=== PATIENT | female | born 1990 | race Caucasian/White ===

== ENCOUNTER 2022-05-01 14:11 | Outpatient (CLI) | payer OTHER, SELFPAY ==
[2022-05-01 14:47] VITALS: BP 103/60; PULSE 88
--- NOTE | 2022-05-01 15:19 | PC.NURSE ---
Sonam Hraley called Dr. Crouch at [phone]. Rom Plus Negative. NST reactive. Orders to send home.
== END 2022-05-01 15:00 | disposition home or self-care (01) ==
LOC: ANHOBOP 15:14
PROVIDERS: Visit Provider Obstetrics & Gynecology
DX: O42.90 Premature rupture of membranes, unspecified as to length of time between rupture and onset of labor, unspecified weeks of gestation (principal); Z3A.00 Weeks of gestation of pregnancy not specified
CPT/HCPCS: 59025; 84112

== ENCOUNTER 2022-06-10 21:28 | Inpatient (IN) | payer OTHER, SELFPAY ==
--- NOTE | 2022-06-10 21:28 | LDADM ---
This patient, Georgette Mcgill, was admitted to Labor/Delivery/Recovery 106 on 06/10/22 at 21:28. Plans for labor, pain management and were discussed with patient. Patient/family oriented to hospital policies and general routines including ID bracelet, bed and alarms, visiting hours, pain management, procedures, bathroom and other care routines, personal items, smoking policy, room service/diet and guest tray routines, security routines, and visiting hours. Patient/Family are encouraged to report perceived risks to care and to ask questions if they do not understand what they are told or what they should do. See OBIX for further documentation.
[2022-06-10 22:05] VITALS: BMI 31.2
[2022-06-10 22:12] VITALS: TEMP 36.9
[2022-06-10 22:29] VITALS: BP 108/90; PULSE 69
[2022-06-10 22:29] LABS: Basophils Percent Auto 0.1 % (0.2-1.2); Eosinophils Absolute Auto 0.1 K/mm3 (0-0.3); Eosinophils Percent Auto 0.5 % (0-4.4); Hemoglobin 13.1 g/dL (12.0-15.0); Immature Granulocyte Absolute 0.06 K/mm3 (0.00-0.031); Immature Granulocyte Percent A 0.5 % (0-0.5); Lymphocytes Percent Auto 18.6 % (18.3-44.2); Mean Corpuscular HGB Conc 34.5 g/dl (32-36); Mean Corpuscular Hemoglobin 32.7 pg (26-34); Mean Corpuscular Volume 94.8 fl (80-100); Mean Platelet Volume 11.3 fl (7.4-10.4); Monocytes Absolute Auto 0.9 K/mm3 (0.1-0.6); Monocytes Percent Auto 7.3 % (2.6-8.5); Platelet Count Result 205 k/mm3 (150-375); Red Blood Count 4.01 M/mm3 (4.2-5.4); Red Cell Distribution Width 12.5 % (11.5-14.5); White Blood Count 12.4 K/mm3 (4.5-10.0)
[2022-06-10 22:31] VITALS: BP 120/54; PULSE 76
[2022-06-10 22:46] VITALS: BP 117/70; PULSE 81
[2022-06-10 23:02] VITALS: BP 76/15; PULSE 166
[2022-06-10 23:11] VITALS: BP 109/83; PULSE 81
[2022-06-11] VITALS (19 sets, daily range): BP systolic 97–136; BP diastolic 62–90; PULSE 68–122; RESP 16–18; TEMP 36.3–37.3; O2SAT 98–100
[2022-06-11] MEDS: FAMOTIDINE 20 MG/2 ML VIAL IV PUSH (01:40)
[2022-06-11] MEDS: fentaNYL CITRATE INJ (*CRX) 100 MCG/2 ML VIAL 50 MCG IV PUSH ×2 (02:36→03:29)
[2022-06-11] MEDS: OXYTOCIN 30 UNITS/NS 500 ML 30 UNITS/500 ML BAG 999 UNITS IV CONT (05:10)
[2022-06-11] MEDS: LIDOCAINE HCL 1% PF 30 ML VIAL ×2 (05:12→05:19)
--- NOTE | 2022-06-11 05:34 | WPDHPUPDATE1 ---
History and Physical Update Update Date/Time: 06/11/22 05:34 History and Physical has been reviewed, including an updated exam of the patient. There are NO changes in the patient's condition. Risks, benefits, and alternatives have been discussed and questions answered. Patient agrees to proceed with procedure.
--- NOTE | 2022-06-11 05:34 | WPDOBADMIT ---
Obstetrics - Admit Note Admission Note: record reviewed. No pertinent additions to the history and/or any subsequent changes in the physical findings that are not consistent with the expected course of the were found. Additions to the history and/or subsequent changes in the physical findings follow. None.
--- NOTE | 2022-06-11 05:35 | PM.OBPRVD ---
OB - Delivery Note Procedure Delivery monitor: External FHT and External Uterine Route of delivery: Episiotomy description: None Laceration Description: Perineal - 2nd Degree Delivery repair: chromic Specimen: No Quantitative Blood Loss (ml): 350 Anesthesia type: Local Disposition: Floor Complications: none Narrative: patient prepped in usual manner for this procedure. Maternal expulsive efforts vertex over nuchal cord was noted and the rest of baby was this point cord clamped cut placenta spontaneously. uterus well contracted second-degree laceration was noted small vaginal tears. Lidocaine was injected in vaginal wall tears were approximated using 2-0 chromic in running interlocking manner and then the second-degree was closed in the same manner to approximate the vaginal tissue the tissue in a subcuticular layer. At this point the procedure was considered terminated with immediate postoperative condition of mother and baby excellent [place] Baby Weeks of gestation at delivery: 40 Infant gender: Male Weight (pounds): 7 Weight (ounces): 8 presentation: vertex Placenta delivery description: Spontaneous Cord Vessel Description: 3 Vessels score one minute: 6 score five minutes: 9 AMG Delivery Billing Delivery Delivery: Delivery Charge
[2022-06-11] MEDS: OXYTOCIN 30 UNITS/NS 500 ML 30 UNITS/500 ML BAG 125 UNITS IV CONT (06:05)
[2022-06-11] MEDS: IBUPROFEN 600 MG TABLET PO (06:25)
[2022-06-11] MEDS: BENZOCAINE 20% AER SPR (*SP) 56 GM CAN 1 SPRAY TOPICAL (06:25)
[2022-06-11] MEDS: WITCH HAZEL 40 PADS 1 PAD TOPICAL (06:26)
[2022-06-12 00:10] VITALS: BP 126/78; PULSE 78; RESP 16; TEMP 37.1; O2SAT 100
[2022-06-12 04:05] LABS: Hematocrit 29.4 % (37.0-47.0); Hemoglobin 10.1 g/dL (12.0-15.0)
[2022-06-12 08:10] VITALS: BP 118/67; PULSE 85; RESP 18; TEMP 36.9; O2SAT 100
[2022-06-12] MEDS: MULTIVIT/MIN/PREN/FOL AC/IRON TABLET 1 TAB PO (08:44)
[2022-06-12] MEDS: IBUPROFEN 600 MG TABLET PO (08:45)
[2022-06-12] MEDS: DOCUSATE SODIUM 100 MG CAPSULE PO (08:45)
--- NOTE | 2022-06-12 11:41 | P.PNOB_ITS ---
OB - PN: Subj Subjective Date/time seen: 06/12/22 11:41 Narrative: PPD#1 Georgette reports doing well today. Her bleeding is market president. Her pain is controlled. She is tolerating regular diet, voiding, passing gas, and ambulating without issues. She is breast feeding. She does NOT want her son to be circumcised. She would like to go home today. OB - PN: Obj Data Labs CBC & Chem 7: 06/12/22 03:58 Labs: Laboratory Results - last 24 hr 06/12/22 03:58 Hgb 10.1 L D Hct 29.4 L OB - PN A/P Assessment and Plan (1) Normal vaginal delivery of first : Code(s): O80 - Encounter for full-term uncomplicated delivery Status: Acute Plan day: 1 Plan: routine care and discharge home Comments: - Pelvic rest; take meds as prescribed - ER return precautions: fever, n/v/abd pain, bleeding, HTN Time Spent With Patient Time: Total time spent is greater than 50% in coordination of care (as documented) at patient's floor/unit and/or counseling patient: Review of Systems Constitutional: Constitutional: Denies chills, Denies fever(s) and Denies headache(s) Eyes: Eyes: Denies change in vision ENT: Denies dizziness and Denies headache(s) Cardiovascular: Cardiovascular: Denies chest pain, Denies palpitations and Denies dyspnea Respiratory: Respiratory: Denies cough and Denies dyspnea Gastrointestinal: Gastrointestinal: Denies nausea and Denies vomiting Neurologic: Denies dizziness and Denies headache(s) Endocrine: Endocrine: Denies palpitations Exam Const: General: cooperative, comfortable and no acute distress Orientation/consciousness: patient oriented x3 Resp: Effort & Inspection: normal respiratory effort Auscultation: clear to auscultation bilaterally Cardio: Rate: regular rate GI: Inspection: non-distended GI Palp: No abdominal tenderness and Yes Soft to palpation Auscultation: normal bowel sounds : Other: fundus firm Skin: General skin exam: normal color Neuro: General: patient oriented x3 Extrem: General: normal to inspection Psych: Appearance: grossly normal Affect: normal affect Attitude: cooperative
[2022-06-12] MEDS: LANOLIN (LANSINOH) 7.5 GM CREAM 1 APPLIC TOPICAL (13:02)
[2022-06-12] MEDS: WITCH HAZEL 40 PADS 1 PAD TOPICAL (13:04)
[2022-06-12] MEDS: BENZOCAINE 20% AER SPR (*SP) 56 GM CAN 1 SPRAY TOPICAL (13:05)
[2022-06-12 14:41] LABS: Rapid Plasma Reagin Non-Reactive (NonReactive)
[2022-06-13 07:54] VITALS: BP 121/65; PULSE 83; RESP 16; TEMP 37.3; O2SAT 99
--- NOTE | 2022-06-15 07:57 | PM.OBDSVD ---
DS: Admitting Diagnosis Discharge Date 06/12/22 Admitting Diagnosis OB - DS: Summary OB Procedures : None OB Procedures Intrapartum: Spontaneous Vag Delivery OB Procedures: : None Time Spent with Patient Time attestation: Total time spent providing and/or coordinating discharge services: Discharge Plan Discharge Attending physician on discharge: Meka Crouch Consulting providers: Meka Crouch Discharging Clinician: Meka Crouch Anticipated Discharge Date/Time: 06/12/22 16:00 Patient Disposition: Home, Self-Care Activity: may shower and pelvic rest Diet: regular Discharge Instructions: Education: Mom and Baby Guide Given to: Mother Follow-Up: Call your delivering provider's office for an appointment to be seen in: 4 Weeks Mom and baby should come to the [facility] for the follow-up appointment. Appointment Date/Time: June 13, 2022 at 8:00 am What to expect at your follow-up visit: Blood Pressure Check Physical Assessment Call [phone] if you are unable to keep your appointment time. BREAST CARE: * Wear a snug supportive bra. * For engorgement discomfort: Breast Feeding: * Apply warm moist washcloths * Express milk as needed to relieve engorgement * Wear loose clothing Bottle Feeding: * May apply ice packs * For sore nipples: * Identify correct latch-on * Apply warm moist washcloths before and after nursing * Air dry nipples after nursing * May apply Lansinoh cream to nipples EPISIOTOMY/PERINEAL CARE: * Until bleeding stops, use your mariusz bottle after urinating * Change your pad frequently throughout the day * You may take sitz baths several times a day (fill your bathtub with warm water and soak for 20 minutes.) Do NOT bathe in the water * No tub baths until seen by your physician - You may shower ACTIVITY: * Rest as much as possible. * Do not exercise or lift anything heavier than your baby (such as laundry or other children.) * Avoid stairs or driving as much as possible. * Do not put anything into the vagina. No douching, tampons, or sexual activity until seen by physician. NOTIFY PHYSICIAN IF YOU HAVE ANY QUESTIONS OR IF ANY OF THE FOLLOWING SYMPTOMS OCCUR: * If your episiotomy or incision becomes red, swollen, or more painful than what you have experienced in the hospital. * If your vaginal bleeding becomes foul smelling. * If your vaginal bleeding becomes more heavy than a period or if your bleeding changes from pink to bright red. However, you may pass an occasional walnut-sized clot once or twice for the first week . * If you experience a sharp, shooting pain in you calves. * If you discover a hard, reddened area on your breast or if you experience flu-like symptoms. DIET: * Eat regular, well-balanced meals. * Drink plenty of fluids daily. If , drink to thirst. Patient Instructions: Antibiotic Form, Vaginal Delivery (DC) Stand Alone Forms: General Discharge Information Follow-up/Referrals: Meka Crouch MD [Physician] - 4 Weeks Discharge Medications: New acetaminophen [Mapap (acetaminophen)] 325 mg Tablet 650 mg PO Q6H PRN (Reason: Mild Pain (1-3) Or Headache) 10 Days Qty: 60 0RF docusate sodium 100 mg Capsule 100 mg PO BID PRN (Reason: Constipation) 20 Days Qty: 40 0RF ibuprofen 600 mg Tablet 600 mg PO Q6H PRN (Reason: Cramping) 10 Days Qty: 40 0RF Continued vit-iron fum-folic ac 65 mg iron- 1 mg tablet 1 tablet PO DAILY Date of admission: 06/10/22 21:28 Primary Care Provider: UNKNOWN,DOCTOR Admitting Provider: Herbie Calderón Attending physician on admission: Herbie Calderón Condition: Stable
== END 2022-06-12 13:20 | disposition home or self-care (01) | DRG 807 ==
LOC: ANHOB2 06-12 14:16 → ANHLDR 06-14 10:32
PROVIDERS: Admitting Provider Obstetrics & Gynecology; Visit Provider Obstetrics & Gynecology
DX: O76 Abnormality in fetal heart rate and rhythm complicating labor and delivery (principal); Z37.0 Single live birth; O69.81X0 Labor and delivery complicated by cord around neck, without compression, not applicable or unspecified; O70.1 Second degree perineal laceration during delivery; Z3A.40 40 weeks gestation of pregnancy
CPT/HCPCS: 36415; 85014; 85018; 85025; 86592; 86850; 86900; 86901; A9270; J2590; J3010

== ENCOUNTER 2022-09-18 09:31 | Emergency (ER) | payer OTHER, SELFPAY ==
[2022-09-18 09:42] VITALS: BP 119/81; PULSE 81; RESP 16; TEMP 36.1; O2SAT 100
--- NOTE | 2022-09-18 09:50 | ED.URI ---
HPI - URI/Sore Throat General Chief Complaint: Upper Respiratory Infection Stated Complaint: Sore Throat,Cough Time Seen by Provider: 09/18/22 10:45 Source: patient and RN notes reviewed Mode of arrival: ambulatory Limitations: no limitations History of Present Illness HPI Narrative: 32-year-old female presents concern for 2-3 day history of sore throat, cough, body aches, headache, chills. She is breast-feeding a 3-month-old . She has not taken any medications for her symptoms MD elicited complaint: cough and sore throat Related Data Home Medications Medication Instructions Recorded Confirmed vitamins-iron fumarate 65 1 tablet PO DAILY 11/15/21 06/11/22 mg iron-folic acid 1 mg tablet Allergies Allergy/AdvReac Type Severity Reaction Status Date / Time No Known Allergies Allergy Verified 09/18/22 10:23 Review of Systems Review of Systems: CONSTITUTIONAL: Reports malaise, chills EYES: Denies visual changes, redness, or discharge. ENT: Reports rhinorrhea, congestion, and sore throat. CARDIOVASCULAR: Denies chest pain, palpitations, or edema. RESPIRATORY: Reports cough. Denies dyspnea. GASTROINTESTINAL: Denies abdominal pain, nausea, vomiting, diarrhea SKIN: Denies rash or itching. MUSCULOSKELETAL: Reports myalgia. NEUROLOGIC: Report sheadache. 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 There is no relevant family history pertinent to the presenting complaint Exam Narrative: GENERAL: Well-appearing, well-nourished, and in no acute distress. HEAD: Normocephalic EYES: PERRLA, conjunctivae clear ENT: Nares clear, turbinates edematous and erythematous, clear discharge. Mucous membranes moist. TM pearly ochoa with dull light reflex bilaterally; no tragal tenderness. Oropharynx not erythematous without lesions. Tonsils not enlarged and without exudate, no drooling, no hoarseness, no trismus, uvula midline. NECK: Supple. No lymphadenopathy CHEST: Clear to auscultation, breath sounds equal. No wheezing, rhonchi, rales, or stridor. No respiratory distress, speaks in full sentences. HEART: Regular rate and rhythm. No murmur heard. SKIN: Warm, dry, no rash. NEURO: Alert and oriented x3. PSYCH: Normal mood and affect Course Course Emergency Course: Patient is aware of diagnosis, understands and agrees to treatment plan. Anticipatory guidance given. Patient agrees to follow-up as directed and is aware of reasons to seek care at the emergency department. Portions of this record may have been created with voice recognition software Level of Care: Express Care Visit Vital Signs Vital signs: Vital Signs Temperature 97.0 F L 09/18/22 09:42 Pulse Rate 81 09/18/22 09:42 Respiratory Rate 16 09/18/22 09:42 Blood Pressure 119/81 09/18/22 09:42 Pulse Oximetry 100 09/18/22 09:42 Oxygen Delivery Room Air 09/18/22 09:42 Temperature 97.0 F L 09/18/22 09:42 Pulse Rate 81 09/18/22 09:42 Respiratory Rate 16 09/18/22 09:42 Blood Pressure 119/81 09/18/22 09:42 Pulse Oximetry 100 09/18/22 09:42 Oxygen Delivery Room Air 09/18/22 09:42 Reviewed.
== END 2022-09-18 11:15 | disposition home or self-care (01) ==
PROVIDERS: Emergency Provider Nurse Practitioner
DX: J06.9 Acute upper respiratory infection, unspecified (principal)
CPT/HCPCS: 87081; 87804; 87880; 99213; G0463

== ENCOUNTER 2023-12-27 11:11 | Outpatient (CLI) | payer OTHER, SELFPAY ==
--- NOTE | ~2023-12-27 | US_ITS ---
EXAMINATION: US thyroid DATE: 12/27/2023 11:52 INDICATION: Nontoxic goiter, unspecified. TECHNIQUE: Multiple ultrasound images of the thyroid were obtained. COMPARISON: None. FINDINGS: The right thyroid lobe measures 5.7 x 2.2 x 2.7 cm. The left thyroid lobe measures 4.3 x 2.0 x 1.9 c m. The thyroid is diffusely heterogeneous and hypoechoic with increased vascularity. In the right th yroid lobe, there is a 6 mm solid, hypoechoic, wider than tall nodule with smooth margin without echo genic foci (TI-RADS TR4). IMPRESSION: 1. Heterogeneous, hypervascular thyroid, likely chronic lymphocytic (Leandra) thyroiditis. 2. Small thyroid nodule, likely not clinically significant. No follow-up is needed. Reviewed, dictated and finalized at location E. [employer] IMPRESSION: 1. Heterogeneous, hypervascular thyroid, likely chronic lymphocytic (Leandra) thyroiditis. 2. Small thyroid nodule, likely not clinically significant. No follow-up is nee ded.
== END 2023-12-27 11:12 | disposition home or self-care (01) ==
PROVIDERS: PCP Family Medicine; Visit Provider Obstetrics & Gynecology
DX: E04.9 Nontoxic goiter, unspecified (principal)
CPT/HCPCS: 76536